=== PATIENT | female | born 1960 | race Caucasian/White ===

== ENCOUNTER 2024-05-31 11:34 | Emergency (ER) | payer OTHER ==
[~2024-05-31] VITALS: Ht 162.6 cm; Wt 104.5 kg
[~2024-05-31 11:34] MED LIST: ATOR40TA28 PO; GABA-1181 PO; IBUP-1506 PO; LISI-893 PO; METF-81 PO; OXYC-38 PO; PANT-31 PO; RIVA10TA PO
[2024-05-31 11:36] VITALS: BP 143/66; PULSE 84; RESP 18; TEMP 98.2
[2024-05-31] MEDS ORDERED: ACET-66 PO (11:41)
[2024-05-31 13:02] LABS: BASOPHILS % (AUTO) 0.6 % (0.0-2.0); EOSINOPHILS % (AUTO) 4.4 % (1.0-6.0); HEMATOCRIT 41.1 % (36-46); HEMOGLOBIN 13.4 g/dL (12.0-16.0); LYMPHOCYTES # (AUTO) 2.4 K/uL (1.0-4.8); LYMPHOCYTES % (AUTO) 27.9 % (22.0-44.0); MEAN CORPUSCULAR HEMOGLOBIN 28.4 pg (26.0-34.0); MEAN CORPUSCULAR HGB CONC 32.7 G/dL (31.0-37.0); MEAN CORPUSCULAR VOLUME 87 fL (80-100); MONOCYTES # (AUTO) 0.5 K/uL (0.1-1.0); MONOCYTES % (AUTO) 6.4 % (2.0-9.0); NEUTROPHILS # (AUTO) 5.2 K/uL (1.8-7.7); NEUTROPHILS % (AUTO) 60.7 % (40.0-70.0); PLATELET COUNT (AUTO) 335 K/uL (150-450); RED BLOOD CELL COUNT(AUTO) 4.71 MIL/uL (4.00-5.20); RED CELL DISTRIBUTION WIDTH 14.3 % (11.5-14.5); WHITE BLOOD COUNT (AUTO) 8.5 K/uL (4.5-11.0)
[2024-05-31] MEDS ORDERED: POLY510P31 PO (13:05)
[2024-05-31 13:09] LABS: ANION GAP 8 mmol/L (8-16); CALCIUM, TOTAL 9.7 mg/dL (8.8-10.5); CARBON DIOXIDE 28 mmol/L (22-29); CHLORIDE 101 mmol/L (98-107); CREATININE 0.76 mg/dL (0.60-1.30); GLOMERULAR FILTR. RATE CALC > 60 mL/min (>60); GLUCOSE,RANDOM 108 mg/dL (70-110); POTASSIUM 4.3 mmol/L (3.5-5.1); SODIUM SERUM 137 mmol/L (136-145); UREA NITROGEN, BLOOD 12 mg/dL (7-18)
[2024-05-31 13:17] LABS: ALANINE AMINOTRANSFERASE 13 U/L (12-78); ALBUMIN 3.1 g/dL (3.4-5.0); ALKALINE PHOSPHATASE 108 U/L (46-116); ASPARTATE AMINOTRANSFERASE 17 U/L (15-37); BILIRUBIN,TOTAL 0.2 mg/dL (0.1-1.0); LIPASE 34 U/L (16-77); TOTAL PROTEIN, SERUM 7.5 g/dL (6.4-8.2)
[2024-05-31 13:36] LABS: APPEARANCE,URINE CLEAR (CLEAR); BILIRUBIN,URINE NEGATIVE (NEGATIVE); COLOR,URINE LIGHT YELLOW (YELLOW); GLUCOSE, URINE (UA) NEGATIVE (NEGATIVE); KETONES,URINE NEGATIVE (NEGATIVE); LEUKOCYTE ESTERASE ,URINE NEGATIVE (NEGATIVE); NITRATE,URINE NEGATIVE (NEGATIVE); OCCULT BLOOD,URINE NEGATIVE (NEGATIVE); PH,URINE 7.5 (5.0-8.0); PROTEIN,URINE 100-200,SEE CONFIRM mg/dL (NEGATIVE); SPECIFIC GRAVITIY, URINE 1.016 (1.003-1.030); UROBILINOGEN,URINE <=1.0 mg/dL (<=1.0)
[2024-05-31] MEDS: SODIUM CHLORIDE 0.9% 1,000 ML IV ONE (13:48)
[2024-05-31 13:49] LABS: SULFOSALICYLIC ACID,URINE 2+ (Negative)
[2024-05-31] MEDS: ACETAMINOPHEN 500 MG TABLET PO ONE (13:49)
[2024-05-31] MEDS: KETOROLAC TROMETHAMINE 30 MG/ML VIAL IVP ONE (13:49)
[2024-05-31] MEDS: FAMOTIDINE 20 MG/2 ML VIAL IVP ONE (13:49)
[2024-05-31] MEDS: ONDANSETRON HCL 4 MG/2 ML VIAL IVP ONE (13:49)
[2024-05-31 13:50] LABS: RBC,URINE None Seen /HPF (0-2); WBC,URINE None Seen /HPF (0-5)
[2024-05-31 13:51] LABS: BACTERIA,URINE None Seen /HPF (None Seen)
[2024-05-31] MEDS ORDERED: SODIUM CHLORIDE 0.9% 100 ML ONE (13:53)
[2024-05-31] MEDS ORDERED: IOHEXOL 350 MG/ML 100 ML VIAL ONE (13:53)
[2024-05-31] MEDS: MORPHINE SULFATE 2 MG/ML SYRINGE IVP ONE (15:02)
[2024-05-31] MEDS ORDERED: ONDA-104 PO (15:07)
== END 2024-05-31 15:21 | disposition home or self-care (01) ==
LOC: EMS 11:34
DX: R10.9 Unspecified abdominal pain (principal); R11.0 Nausea
CPT/HCPCS: 99285; 74177; 96374; 96375; 96361; 80048; 80076; 81001; 83690; 85025; 36415; Q9967; J3490; J1885; J2270; J2405; J7030; J7050; 81002